=== PATIENT | male | born 1985 | race Caucasian/White ===

== ENCOUNTER → 2022-08-07 11:19 | Outpatient (BNVA) | payer BC, SELFPAY | PROVIDERS: Family Provider Family Medicine; PCP Family Medicine; Visit Provider Family Medicine | DX: R50.9 Fever, unspecified (principal) | CPT/HCPCS: 87400 ==

== ENCOUNTER → 2022-09-02 14:53 | Outpatient (BNVA) | payer BC, SELFPAY | PROVIDERS: Family Provider Family Medicine; PCP Family Medicine; Visit Provider Nurse Practitioner Family | DX: J02.9 Acute pharyngitis, unspecified (principal); R05.9 Cough, unspecified | CPT/HCPCS: 87400; 87426 ==

== ENCOUNTER 2023-08-28 13:50 | Emergency (ER) | payer SELFPAY ==
[2023-08-28 13:56] VITALS: BP 153/97; PULSE 108; RESP 16; TEMP 36.7; O2SAT 99
--- NOTE | 2023-08-28 14:16 | XR_ITS ---
WS: [id number] Exam: XR lumbar spine 2-3V* [id number] Date/Time of Exam: 08/28/2023 2:16 PM Reason For Exam: pain Findings: In the AP projection, the lumbar spine is straight. The sacroiliac joints are open. The facet struc tures are bilaterally symmetrical. In the lateral projection, the lumbar curve is well maintained. The intervertebral disc spaces are intact. No fractures or anomalies of the lumbar spine are noted. IMPRESSION: Negative lumbar spine.
--- NOTE | 2023-08-28 14:17 | W.ED.BACK ---
HPI - Back Pain/Injury General: Chief Complaint: Back Pain/Injury Stated Complaint: lower back pains Time Seen by Provider: 08/28/23 14:04 Source: patient Mode of arrival: ambulatory Limitations: no limitations History of Present Illness: Patient is a 38-year-old male who presents to ED today with complaint of lower lumbar pain over the past 3 days or so. Patient states pain is constant and worse with ambulating and going from a sitting to standing position. He states over the last couple of days before pain started he had been doing a lot of heavy lifting at work and getting up and down out of machinery. He has no radicular symptoms. No fevers. No other systemic symptoms. Denies saddle anesthesia or bowel or bladder dysfunction. MD elicited complaint: back pain Onset (ago): day(s) Timing: constant Severity: severe Pain scale (0-10): 7 Similar Symptoms Previously: No Quality: burning Location: lumbar spine Radiation: none Exacerbating factors: movement, walking and lifting Relieving factors: none Associated symptoms: Reports no associated symptoms; Deny abdominal pain, chills, fatigue or fever(s) Work related injury: No Review of Systems Const: Denies: fever(s), chills, body aches, fatigue or malaise Card: Denies: chest pain Resp: Denies: dyspnea GI: Denies: abdominal pain Musc: Reports: back pain; Denies: neck pain, extremity pain, extremity swelling, joint pain or joint swelling Skin/Breast: Denies: rash Neuro: Denies: headache(s), numbness in extremities, weakness in extremities or sensory changes [facility] PFSH: Social History Smoking and tobacco/nicotine status: current every day tobacco/nicotine user Alcohol intake: current Alcohol intake frequency: few times a month Physical Exam Const: COMMON NORMALS: no acute distress, average body habitus, patient oriented x3, no limitations, healthy appearing, alert and well nourished GENERAL APPEARANCE: cooperative ORIENTATION/CONSCIOUSNESS: Yes awake, Yes oriented to person, Yes oriented to place and Yes oriented to time HENMT: COMMON NORMALS: normocephalic and atraumatic HEAD & SCALP: normal to inspection, normocephalic and atraumatic FACE & SINUS: normal facial exam GI: COMMON NORMALS: Normal to inspection, nondistended, normoactive bowel sounds present, Soft to palpation and non-tender PALPATION: Yes Soft to palpation : COMMON NORMALS: Yes no CVA tenderness BLADDER/KIDNEY EXAM: Yes no CVA tenderness Back/Pelvis: COMMON NORMALS: no CVA tenderness, thoracic and lumbar spine normal to inspection, thoraco-lumbar ROM normal and straight leg raise negative bilaterally THORACIC SPINE/UPPER BACK: Yes thoracic ROM normal, No thoracic spinal tenderness, No paraspinal muscle tenderness and No paraspinal muscle spasm LUMBAR SPINE/LOWER BACK: Yes pain with ROM, Yes lumbar spinal tenderness (mid to lower lumbar), No paraspinal muscle tenderness, No paraspinal muscle spasm, No mass present and Yes straight leg raise negative bilaterally PELVIS: Yes buttocks normal and No sciatic notch tenderness SACROILIAC JOINTS: Yes SI joints normal SACRUM: no tenderness COCCYX: no tenderness Extremity: COMMON NORMALS: normal to inspection, no clubbing, cyanosis or edema, no calf tenderness and no pedal edema GENERAL: Yes normal exam except as noted Neuro: COMMON NORMALS: patient oriented x3, moves all extremities, no focal motor deficits, no sensory deficits noted and gait normal SENSORIUM/ORIENTATION: Yes alert, Yes oriented to person, Yes oriented to place and Yes oriented to time MOTOR EXAM: 5/5 motor strength present throughout Skin: COMMON NORMALS: no rashes or lesions noted GENERAL SKIN EXAM: no rashes or lesions noted Course Vital Signs: Vital signs: Vital Signs Temperature 98.0 F 08/28/23 13:56 Pulse Rate 108 H 08/28/23 13:56 Respiratory Rate 16 08/28/23 13:56 Blood Pressure 153/97 08/28/23 13:56 Pulse Oximetry 99 08/28/23 13:56 Oxygen Delivery Me thod Room Air 08/28/23 13:56 MDM - Back Pain/Injury Medical Decision Making XR negative. No acute neurologic complaints or symptoms. Patient will be treated with steroids, NSAIDS, muscle relaxers. Recommend follow-up with primary care in 1 to 2 weeks if symptoms do not begin to improve. Return ED precautions given. All radiology interpretation(s) finalized by discharge Discharge Plan Discharge Patient Disposition: Home Clinical Impression: Acute lumbar back pain Qualifiers: Back pain laterality: midline Sciatica presence: without sciatica Qualified Code(s): M54.50 - Low back pain, unspecified Condition: Stable Prescriptions: New cyclobenzaprine 10 mg tablet 10 mg PO TID Qty: 14 0RF ibuprofen 800 mg tablet 800 mg PO Q8H PRN (Reason: pain) Qty: 20 0RF Medrol (Patel) 4 mg tablets,dose pack See Rx Instructions .ROUTE .COMPLEX Qty: 21 0RF Rx Instructions: orally per package directions Discharge Orders: Discharge ED (Routine); Ordered 08/28/23 Ordered By: Tamiko Shah Referrals: Hubert Ambrosio DO [Primary Care Provider] - Stand Alone Forms: Work/School Release Coding Level of Care Code ED Passenger Service Representative for [employer]
[2023-08-28] MEDS: dexamethasone 10 mg/mL INJ 8 MG IM (14:35)
[2023-08-28] MEDS: ketorolac 60 mg/2 mL INJ IM (14:36)
[2023-08-28] MEDS: orphenadrine 30 mg/mL Inj 2 mL 60 MG IM (14:36)
[2023-08-28 15:34] VITALS: BP 150/96; PULSE 115; O2SAT 99
== END 2023-08-28 15:35 | disposition home or self-care (01) ==
PROVIDERS: Emergency Provider Physician Assistant; PCP Family Medicine
DX: M54.50 Low back pain, unspecified (principal); Z72.0 Tobacco use
CPT/HCPCS: 72100; 96372; 99284; J1100; J1885; J2360